=== PATIENT | male | born 1975 | race Caucasian/White ===

== ENCOUNTER 2018-11-21 03:19 | Inpatient (IN) ==
--- NOTE | 2018-11-21 04:01 | DR.EXTPAIN ---
HPI - Time seen Time seen: 03:50 - PCP Primary Care Physician: NFD - Complaint/Symptoms Chief Complaint Doctor Comments: Patient is complaining of pain and swelling left foot for the past five days getting progressively worst. States he was w orking in the yard and think he stepped on something because he pulled two pieces of metal from his left foot a few days ago and his foot has been swelling, turned red with greenish drainage recently. State the pain is 4 of 10 and hurts worst when he is walking. States he has been taking Septra at times at home some times one -two daily but not consistenly. He denies tobacco use but drinks 2-3 beers daily. He denies drug or vapor use. He denies chest pain or SOB. States he do not have a local doctor. Chief Complaint:: PT STATES' SOMETHING HIT ME IN MY FOOT 5 DAYS AGO I REMOVED SOME METAL PIECES OUT OF IT. I WORKED ON IT ALL DAY AND WHEN I TOOK A HOT SHOWER TONIGHT IT SWOLE UP LIKE THIS". PT HAS REDNESS AND SWELLING NOTED TO LT FOOT PT'S GF WAS SQUEEZING OUT GREENISH COLORED PUS AT HOME - Nurses notes reviewed Nurses Notes Review: Yes - Source History Provided: Patient - Mode of arrival Mode of Arrival: Ambulatory - Timing Onset of Chief Complaint: 11/16/18 - Context History of: None - Associated signs and symptoms Associated Signs and Symptoms: Pain, Foriegn Body, Swelling PMH - PMH Past Medical History: Yes Past Medical History: Arthritis Past Surgical History: No - Family History History of Family Medical Conditions: Yes Family Medical History: [place], Coronary Artery Disease - Social History Alcohol Use: DAILY Do 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 negative: See HPI, Chest Pain, Edema, Palpitations, Syncope, Cyanosis, Skin Mottling, Other Gastrointestinal/Abdominal: No Symptoms Reported. negative: See HPI, Abdominal Pain, Constipation, Diarrhea, Nausea, Vomiting, Food Intolerance, Other Genitourinary: No Symptoms Reported Neurological: No Symptoms Reported, Problems Walking (left foot pain and swelling) Musculoskeletal: Left, Foot (swelling, drainage) Integumentary: No Symptoms Reported, Wound (left heel with punture sites x2 with drainage) Hematologic/Lymphatic: No Symptoms Reported Endocrine: No Symptoms Reported Psychiatric: No Symptoms Reported. negative: See HPI, Anxiety, Depression, Hallucinations, Excessive crying, Suicidal, Other PE - General Limitations: No Limitations General Appearance: Alert, In Distress (moderate) - Head Head Exam: Normal Inspection, Atraumatic, Normocephalic - Eyes Eye exam: Normal Appearance, PERRL, EOMI. negative: Scleral Icterus, Co njunctival Injection, Nystagmus, Miosis, Mydrasis, Periorbital Swelling, Periorbital Tenderness, Other - ENT ENT Exam: Normal Exam, Normal Oropharynx, Normal External Ear Exam, Mucous Membranes Moist, TM's Normal Bilaterally - Neck Neck Exam: Normal Inspection, Full ROM, Trachea Midline - Chest Chest Inspection: Normal Inspection, Symmetric Chest Wall Rise. negative: Tenderness, Rash, Abscess, Other - Respiratory Respiratory Exam: Normal Lung Sounds Bilat Respiratory Exam: Bilateral Clear to Auscultation - Cardiovascular Cardiovascular Exam: Regular Rate, Normal Rhythm, Normal Heart Sounds. negative: Bradycardia, Tachycardia, Irregular Rhythm, Systolic Murmur, Diastolic Murmur, Rubs, Gallop, Clicks, JVD, +S1, +S2, +S3, +S4, Other - Abdominal Exam Abdominal Exam: Normal Inspection, Normal Bowel Sounds, Soft. negative: Distention, Tenderness, Guarding, Rebound, Rigidity, Dimnished Bowel Sounds, Hyperactive Bowel Sounds, Hypoactive Bowel Sounds, Organomegaly, Trauma, Incision, Ascites, Mass, Bruit, Pulsatile Mass, Hernia, Other Abdominal Tenderness: negative: RUQ, RLQ, LUQ, LLQ, Epigastrium, Suprapubic, Diffuse, Mild, Moderate, Severe, Other - Extremities Extremities Exam: Normal Inspection, Full ROM, Tenderness (left foot with pain,swelling, warm puru), Normal Capillary Refill, Edema (left foot with swelling; left lower leg with erythema) - Upper Extremities Shoulder Exam: Normal Inspection, Full ROM. negative: Tenderness, Swelling, Abrasion, Laceration, Ecchymosis, Deformity, Crepitus, Dislocation, Erythema, Tenderness over AC Joint, Other Arm Exam: Normal Inspection, Full ROM. negative: Tenderness, Swelling, Abrasion, Laceration, Ecchymosis, Deformity, Crepitus, Erythema, Other Elbow Exam: Normal Inspection, Full ROM. negative: Tenderness, Swelling, A brasion, Laceration, Ecchymosis, Deformity, Crepitus, Dislocation, Erythema, Effusion, Pain w/ pronation, Pain w/ Spuination, Tenderness over Radial Head, Other Forearm Exam: Normal Inspection, Full ROM. negative: Tenderness, Swelling, Abrasion, Laceration, Ecchymosis, Deformity, Crepitus, Erythema, Dislocation, Other Hand Exam: Normal Inspection, Full ROM Neuromotor Exam: Normal Exam Neurosensory Exam: Normal Exam Hand Tendon Exam: Flexor Digitorium Profundus (Location) (normal) Upper Ext. Vascular Exam: Capillary Refill (normal) - Lower Extremities Hip/Pelvis Exam: Normal Inspection, Full ROM. negative: Tenderness, Swelling, Abrasion, Laceration, Ecchymosis, Deformity, Crepitus, Dislocation, Erythema, External Rotation, Internal Rotation, Shortening, Pelvis Stable, Other Upper Leg Exam: Normal Inspection, Full ROM Knee Exam: Normal Inspection, Full ROM Lower Leg Exam: Normal Inspection, Full ROM, Tenderness (left foot with swelling, tender, erythema, edematous), Swelling, Erythema (left foot) Ankle Exam: Normal Inspection, Full ROM, Tenderness (left ankle with swelling and erythema), Erythema Foot/Toe Exam: Tenderness, Swelling, Erythema, Puncture Wound (left heel x2). negative: Normal Inspection (left foot with severe swelling, erythema, purulent drainabe) Neurovascular/Tendon Exam: Normal Capillary Refill Gait Exam: Not Tested/Not Observed - Back Back Exam: Normal Inspection, Full ROM. negative: Tenderness, (R) CVA Tenderness, (L) CVA Tenderness, Muscle Spasm, Paraspinal Tenderness, Vertebral Tenderness, Rashes, (R) Sciatic Notch Tenderness, (L) Sciatic Notch Tendern, (R) Straight Leg Raise, (L) Straight Leg Raise, Other - Neurological Neurological Exam: Alert, Oriented X3, CN II-XII Intact, Reflexes Normal. negative: Normal Gait (gait not tested) - Psychiatric Psychiatric Exam: Normal Affect, Normal Mood. negative: Depressed, Agitated, Anxious, Flat Affect, Manic, Homicidal Ideation, Suicidal Ideation, Other - Skin Skin Exam: Warm, Dry, Intact, Normal Color, Erythema (left foot) Type of Lesion: negative: Rash, Abscess, Laceration, Foreign Body, Bite/Sting, Abrasion, Other Distribution: negative: Generalized, Involves Palms/Soles, Head, Face, Neck, Thorax, Chest, Back, Abdomen, Genitals, LUE, LLE, RUE, RLE, Other Description: negative: Size, Tenderness, Erythematous, Swelling, Macular, Papular, Vesicular, Blisters, Cofluent, Bullous, Petechial, Purpuric, Urticarial, Crusting, Discharge, Fluctuant, Indurated, Other - Vital Signs Vitals: Temperature 98.1 F Pulse Rate 94 Respiratory Rate 20 Blood Pressure [Right Arm] 148/92 Blood Pressure [Left Arm] 142/88 Blood Pressure 136/65 O2 Sat by Pulse Oximetry 100 Course - Reevaluation 1st: Improved - Consultation Called: 06:10 (Dr. Bull paged x2.) Call Returned: 06:48 (Dr. Bull to admit) - Education/Counseling Education/Counseling: Patient, Family Educated On: Treatment, Diagnosis, Needs for Follow Up ROR - Labs Reviewed Laboratory Results Reviewed?: Yes (All Labs and x-ray results reviewed and discussed with patient) Result Diagrams: 11/21/18 04:30 11/21/18 04:30 - XRAY XRAY Interpreted by: Radiologist (left foot x-ray: No acute left foot fracture. Soft tissue swelling over the forefoot.) XRAY Findings: CXR: no acute cardiopulmonary changes noted. - Labs Reviewed Laboratory: WBC 12.1 X10^3/uL (3.6-10.0) H 11/21/18 04:30 RBC 4.04 X10^6/uL (4.7-6.0) L 11/21/18 04:30 Hgb 12.5 g/dL (13.5-18.0) L 11/21/18 04:30 Hct 35.7 % (42.0-54.0) L 11/21/18 04:30 MCV 88.5 fL (80.0-100.0) 11/21/18 04:30 MCH 30.9 pg (27.0-34.0) 11/21/18 04:30 MCHC 34.9 g/dL (33.0-35.0) 11/21/18 04:30 RDW 13.9 % (11.6-16.5) 11/21/18 04:30 Plt Count 243 X10^3/uL (150.0-450.0) 11/21/18 04:30 MPV 6.9 fL (7.4-11.0) L 11/21/18 04:30 Neut % (Auto) 80.8 % (42.0-75.0) H 11/21/18 04:30 Lymph % (Auto) 11.0 % (21.0-51.0) L 11/21/18 04:30 Arthur % (Auto) 7.3 % (0.0-13.0) 11/21/18 04:30 Eos % (Auto) 0.6 % (0.9-2.9) L 11/21/18 04:30 Baso % (Auto) 0.3 % (0.2-1.0) 11/21/18 04:30 Neut # (Auto) 9.8 x10^3/uL (2.2-4.8) H 11/21/18 04:30 Lymph # (Auto) 1.3 X10^3/uL (1.3-2.9) 11/21/18 04:30 Arthur # (Auto) 0.9 x10^3/uL (0.3-0.8) H 11/21/18 04:30 Eos # (Auto) 0.1 x10^3/uL (0.0-0.2) 11/21/18 04:30 Baso # (Auto) 0.0 X10^3/uL (0.0-0.1) 11/21/18 04:30 Absolute Nucleated RBC 0.0 /100WBC 11/21/18 04:30 Sodium 136 mmol/L (136-145) 11/21/18 04:30 Corrected Sodium TNP 11/21/18 04:30 Potassium 2.8 mmol/L (3.5-5.1) L* 11/21/18 04:30 Chloride 99 mmol/L (98-107) 11/21/18 04:30 Carbon Dioxide 26.1 mmol/L (21-32) 11/21/18 04:30 BUN 7 mg/dL (7-18) 11/21/18 04:30 Creatinine 0.86 mg/dL (0.70-1.30) 11/21/18 04:30 Est GFR (MDRD) Af Amer > 60 (>60) 11/21/18 04:30 Est GFR (MDRD) Non-Af > 60 (>60) 11/21/18 04:30 Glucose 107 mg/dL (65-99) H 11/21/18 04:30 Lactic Acid 0.7 mmol/L (0.4-2.0) 11/21/18 04:30 Calcium 8.8 mg/dL (8.5-10.1) 11/21/18 04:30 Corrected Calcium TNP 11/21/18 04:30 Total Bilirubin 0.40 mg/dL (0.2-1.0) 11/21/18 04:30 AST 15 Units/L (15-37) 11/21/18 04:30 ALT 25 Units/L (12-78) 11/21/18 04:30 Alkaline Phosphatase 84 Units/L (46-116) 11/21/18 04:30 Total Protein 7.5 g/dL (6.4-8.2) 11/21/18 04:30 Albumin 3.6 g/dL (3.4-5.0) 11/21/18 04:30 Globulin 3.9 g/dL (2.5-4.5) 11/21/18 04:30 Albumin/Globulin Ratio 0.9 Ratio (1.1-2.1) L 11/21/18 04:30 Opioid - Opioid Risk Tool Total: 0 Total Score Risk Category: Low Risk - Diagnosis Discharge Problem: Cellulitis of left foot, Hypokalemia Puncture wound of left foot Qualifiers: Encounter type: initial encounter Qualified Code(s): S91.332A - Puncture wound without foreign body, left foot, initial encounter - Discharge Plan Disposition: ADMITTED INPATIENT Condition: Stable - Follow ups/Referrals Follow ups/Referrals: NFD,None [Primary Care Provider] - 3 days - Instructions
[2018-11-21] MEDS ORDERED: VANCOMYCIN HCL 1 G in D5W 250 ML IV 250 ML IV ONE (04:03)
[2018-11-21] MEDS ORDERED: ADACEL or BOOSTRIX TDaP VACCINE IM ONE ×2 (04:04→04:17)
[2018-11-21] MEDS ORDERED: TORADOL 30 MG VIAL IVP ONE (04:05)
[2018-11-21] MEDS ORDERED: VANCOMYCIN HCL ONE (04:15)
[2018-11-21] MEDS ORDERED: TORADOL 30 MG VIAL ONE (04:15)
[2018-11-21] MEDS ORDERED: NS 250 ML IV 250 ML IV ONE (04:16)
[2018-11-21] MEDS: NS 1000 ML 1,000 ML IV SCH ×3 (04:24→21:37)
[2018-11-21 04:33] LABS: BASOPHILS % (AUTO) 0.3 % (0.2-1.0); EOSINOPHILS # (AUTO) 0.1 x10^3/uL (0.0-0.2); EOSINOPHILS % (AUTO) 0.6 % (0.9-2.9); HEMATOCRIT 35.7 % (42.0-54.0); HEMOGLOBIN 12.5 g/dL (13.5-18.0); LYMPHOCYTES # (AUTO) 1.3 X10^3/uL (1.3-2.9); MEAN CORPUSCULAR HEMOGLOBIN 30.9 pg (27.0-34.0); MEAN CORPUSCULAR HGB CONC 34.9 g/dL (33.0-35.0); MEAN CORPUSCULAR VOLUME 88.5 fL (80.0-100.0); MEAN PLATELET VOLUME 6.9 fL (7.4-11.0); MONOCYTES # (AUTO) 0.9 x10^3/uL (0.3-0.8); MONOCYTES % (AUTO) 7.3 % (0.0-13.0); NEUTROPHILS # (AUTO) 9.8 x10^3/uL (2.2-4.8); NEUTROPHILS % (AUTO) 80.8 % (42.0-75.0); PLATELET COUNT 243 X10^3/uL (150.0-450.0); RED BLOOD COUNT 4.04 X10^6/uL (4.7-6.0); RED CELL DISTRIBUTION WIDTH 13.9 % (11.6-16.5); WHITE BLOOD COUNT 12.1 X10^3/uL (3.6-10.0)
[2018-11-21 04:47] LABS: BLOOD UREA NITROGEN 7 mg/dL (7-18); CALCIUM 8.8 mg/dL (8.5-10.1); CARBON DIOXIDE 26.1 mmol/L (21-32); CHLORIDE 99 mmol/L (98-107); CREATININE 0.86 mg/dL (0.70-1.30); SODIUM 136 mmol/L (136-145); eGFR NON BLACK RACES > 60 (>60)
[2018-11-21 04:51] LABS: ALANINE AMINOTRANSFERASE 25 Units/L (12-78); ALBUMIN 3.6 g/dL (3.4-5.0); ALKALINE PHOSPHATASE 84 Units/L (46-116); ASPARTATE AMINO TRANSFERASE 15 Units/L (15-37); TOTAL PROTEIN 7.5 g/dL (6.4-8.2)
[2018-11-21 04:56] LABS: LACTIC ACID 0.7 mmol/L (0.4-2.0)
[2018-11-21] MEDS ORDERED: K-LYTE EFFERVESCENT PO ONE (05:08)
[2018-11-21] MEDS ORDERED: K-LYTE EFFERVESCENT ONE (05:12)
--- NOTE | 2018-11-21 05:55 | RAD ---
Left foot three views Indication: Cellulitis. Foreign body Findings: There is no cortical lucency or malalignment. There is soft tissue swelling over the forefoot. Impression: No acute left foot fracture. Soft tissue swelling over the forefoot noted. Reported By:
--- NOTE | 2018-11-21 05:56 | RAD ---
Chest AP portable Indication: Cellulitis Comparison: 03/11/2014 Findings: There is no pneumothorax or effusion. There is no consolidation. Heart size is normal. Impression: No acute chest process. Reported By:
[2018-11-21] MEDS ORDERED: ZOSYN VIAL 3.375 GRAMS 3.375 G in NS 100 ML IV + SPIKE MINIBAG* 100 ML IV ONE (06:22)
[2018-11-21] MEDS ORDERED: NS 100 ML IV 100 ML IV ONE (06:51)
[2018-11-21] MEDS ORDERED: ZOFRAN TAB 4 MG PO PRN (06:51)
[2018-11-21] MEDS ORDERED: ZOSYN VIAL 3.375 GRAMS IV ONE (06:52)
[2018-11-21 07:49] LABS: BILIRUBIN,URINE NEGATIVE (NEGATIVE); BLOOD/HEMOGLOBIN,URINE 1+ (NEGATIVE); GLUCOSE, URINE NEGATIVE (NEGATIVE); KETONES,URINE 1+ (NEGATIVE); LEUKOCYTE ESTERASE ,URINE 1+ (NEGATIVE); NITRITES,URINE NEGATIVE (NEGATIVE); PROTEIN,URINE 2+ (NEGATIVE); UROBILINOGEN,URINE 3+ (NORMAL)
[2018-11-21 07:57] LABS: APPEARANCE,URINE CLEAR (CLEAR); COLOR,URINE DARK YELLOW (YELLOW); RBC,URINE NONE SEEN /HPF (0-3)
[2018-11-21 07:58] LABS: AMORPHOUS SEDIMENT,UR TRACE /HPF (NEGATIVE); BACTERIA,URINE NEGATIVE /HPF (NEGATIVE); MUCUS,URINE MANY /HPF (NEGATIVE); SQUAMOUS EPITHELIAL CELL,UR NEGATIVE /HPF (NEGATIVE)
[2018-11-21] MEDS ORDERED: NS 1/2 + KCL 20 MEQ/L 1,000 ML IV SCH (08:00)
[2018-11-21] MEDS: LEVAQUIN PREMIX IV 750 MG 750 MG/150 ML BAG IV SCH (10:02)
[2018-11-21] MEDS: LOVENOX INJ 40 MG SYR SC SCH (10:03)
[2018-11-21] MEDS: MOTRIN TAB 600 MG PO PRN (10:03)
[2018-11-21 10:11] VITALS: BMI 22.4
--- NOTE | 2018-11-21 11:04 | DR.H&P ---
H&P - History & Physical for Day of: H&P Date: 11/21/18 - Chief Complaint Chief Complaint: left ankle pain, redness - History of Present Illness History of Present Illness: PT IS 43 WM ER ADMISSION AFTER PRESENTING WITH CO REDNESS, SWELLING PAIN TO LEFT LATERAL ANKLE AND POSTERIOR LLE. PT STATES HAD METAL IN LEG ABOUT 1-2 WEEKS AGO, GOT INFECTED AND DRAINED THICK YELLOW D/C. PT STATES HE TOOK SEPTRA AT HOME ~ 4 DOSES. PT DENIES ANY HX OF DM OR HTN. PT ADMITTED FOR TREATMENT OF LLE CELLULITIS. - Past Medical History Past Medical History: Arthritis - Past Surgical History Surgical History: Ortho Surgery (LEFT HAND) - Family History Family Medical History: Cancer, [place], Hypertension - Social History Does patient currently use any type of tobacco product: No Have you used tobacco products in the last 12 months: No Type of Tobacco Use: None Does any household member use tobacco: No Alcohol Use: Occasionally Drug Use: None - Medications Home Medications: No Known Drug Allergies Allergy (Verified 11/21/18 03:26) CONTINUE taking the following medications NK 11/21/18 [History] - Review of Systems Constitutional: Fever Eyes: No Symptoms Reported ENT: No Symptoms Reported Respiratory: No Symptoms Reported Cardiovascular: No Symptoms Reported Gastrointestinal: No Symptoms Reported Genitourinary: No Symptoms Reported Musculoskeletal: Leg Pain Skin: Wound (LLE, LEFT ANKLE) - Physical Exam Vital Signs: Temperature 98.1 F Pulse Rate [Left Brachial] 86 Pulse Rate 94 Respiratory Rate 18 Blood Pressure [Right Arm] 137/80 Blood Pressure [Left Arm] 110/64 Blood Pressure 136/65 O2 Sat by Pulse Oximetry 100 Oriented: Normal Eyes: Normal Ear: Normal Nose: Normal Throat: Normal Respiratory: Clear Throughout Cardiovascular: Normal : Normal Auscultation: Bowel Sounds: Normal Palpation: Normal Tenderness: Normal Skin: Red, Tender, Hot, Wound Musculoskeletal: Left, Ankle, Foot Psychiatric: Normal Speech Pattern: Clear, Appropriate - Assessment/Plan (1) Hypokalemia Status: Acute Plan: ADMIT, IV HYDRATION, POTASSIUM REPLACEMENT. WOUND CARE, WOUND AND BLOOD CULTURES ON ADMISSION. IV ATBX THERAPY, LLE XRAY IN ER. CXR IN ER ON ADMISSION. (2) Cellulitis of left foot Status: Acute (3) Puncture wound of left foot Qualifiers: Encounter type: initial encounter Qualified Code(s): S91.332A - Puncture wound without foreign body, left foot, initial encounter Status: Acute - Allergies Allergies/Adverse Reactions: Allergies Allergy/AdvReac Type Severity Reaction Status Date / Time No Known Drug Allergies Allergy Verified 11/21/18 03:26
[2018-11-21] MEDS ORDERED: POTASSIUM CHL 60 MEQ/NS 0.45% 500 ML IV PRN (11:21)
[2018-11-21] MEDS ORDERED: POTASSIUM CHL 40 MEQ/NS 0.45% 500 ML IV PRN (11:21)
[2018-11-21] MEDS ORDERED: K-RIDER 10 MEQ/NS 100 ML 10 MEQ/100 ML BAG IV PRN (11:21)
[2018-11-21] MEDS ORDERED: POTASSIUM CHLORIDE LIQ 20 MEQ UDC PO PRN (11:21)
[2018-11-21] MEDS ORDERED: MICRO K EXTEN CAP 10 MEQ PO PRN (11:21)
[2018-11-21] MEDS ORDERED: KLOR-CON PO PRN (11:21)
[2018-11-21] MEDS: NORCO 5/325 MG TAB PO PRN ×2 (11:32→19:20)
[2018-11-21] MEDS: K-DUR TAB 20 MEQ PO PRN (14:52)
[2018-11-21] MEDS: ZOSYN VIAL 3.375 GRAMS 3.375 G in NS 100 ML IV + SPIKE MINIBAG* 100 ML IV SCH ×2 (14:52→21:38)
[2018-11-21] MEDS: MORPHINE SULFATE INJ 2 MG INJ IVP PRN (14:53)
[2018-11-22] MEDS: ZOSYN VIAL 3.375 GRAMS 3.375 G in NS 100 ML IV + SPIKE MINIBAG* 100 ML IV SCH ×4 (05:26→21:36)
[2018-11-22] MEDS: NORCO 5/325 MG TAB PO PRN ×2 (05:36→12:27)
[2018-11-22 05:39] LABS: BASOPHILS % (AUTO) 0.8 % (0.2-1.0); EOSINOPHILS # (AUTO) 0.2 x10^3/uL (0.0-0.2); EOSINOPHILS % (AUTO) 2.8 % (0.9-2.9); HEMATOCRIT 34.4 % (42.0-54.0); HEMOGLOBIN 12.1 g/dL (13.5-18.0); LYMPHOCYTES # (AUTO) 1.7 X10^3/uL (1.3-2.9); LYMPHOCYTES % (AUTO) 28.9 % (21.0-51.0); MEAN CORPUSCULAR HEMOGLOBIN 31.3 pg (27.0-34.0); MEAN CORPUSCULAR HGB CONC 35.2 g/dL (33.0-35.0); MEAN CORPUSCULAR VOLUME 88.8 fL (80.0-100.0); MONOCYTES # (AUTO) 0.5 x10^3/uL (0.3-0.8); MONOCYTES % (AUTO) 7.9 % (0.0-13.0); NEUTROPHILS # (AUTO) 3.6 x10^3/uL (2.2-4.8); NEUTROPHILS % (AUTO) 59.6 % (42.0-75.0); PLATELET COUNT 217 X10^3/uL (150.0-450.0); RED BLOOD COUNT 3.87 X10^6/uL (4.7-6.0); RED CELL DISTRIBUTION WIDTH 14.1 % (11.6-16.5)
[2018-11-22 06:00] LABS: ALANINE AMINOTRANSFERASE 21 Units/L (12-78); ALBUMIN 2.9 g/dL (3.4-5.0); ALKALINE PHOSPHATASE 68 Units/L (46-116); ASPARTATE AMINO TRANSFERASE 12 Units/L (15-37); BLOOD UREA NITROGEN 8 mg/dL (7-18); CALCIUM 8.6 mg/dL (8.5-10.1); CARBON DIOXIDE 29.2 mmol/L (21-32); CHLORIDE 104 mmol/L (98-107); COR CA(FOR HYPOALB) 9.5 mg/dL (8.5-10.1); CREATININE 0.73 mg/dL (0.70-1.30); SODIUM 140 mmol/L (136-145); TOTAL PROTEIN 6.4 g/dL (6.4-8.2); eGFR NON BLACK RACES > 60 (>60)
[2018-11-22] MEDS: K-DUR TAB 20 MEQ PO PRN (06:45)
[2018-11-22] MEDS: LEVAQUIN PREMIX IV 750 MG 750 MG/150 ML BAG IV SCH (08:24)
[2018-11-22] MEDS: LOVENOX INJ 40 MG SYR SC SCH (08:24)
[2018-11-22] MEDS: MORPHINE SULFATE INJ 2 MG INJ IVP PRN (13:33)
[2018-11-22] MEDS: NS 1000 ML 1,000 ML IV SCH ×2 (13:51→19:10)
[2018-11-22] MEDS: MOTRIN TAB 600 MG PO PRN (16:00)
--- NOTE | 2018-11-22 16:50 | PCM.PROG ---
Progress Note - Progress Note for Day of Date of Exam: 11/22/18 - Subjective Subjective: 43 WM ER ADMISSION WITH LEFT LEG/MAGALY CELLULITIS WITH SMALL OPEN SORE TO POSTERIOR ANKLE AREA. CULTURE WAS OBTAINED AFTER ADMISSION. PT IS CURRENTLY ON IV LEVAQUIN AND ZOSYN. PT WBC NORMAL THIS AM. PT CONTINUES WITH LOCALIZED REDNESS AND TENDERNESS ON EXAM. - Past Medical Family Social History Past Med/Fam/Surg Hx: No changes since H&P Allergies: Allergies No Known Drug Allergies Allergy (Verified 11/21/18 03:26) - Review of Systems ROS: No change since H&P - Vital Signs and I&O's Vital Signs: Temperature 98.5 F Pulse Rate [Left Brachial] 70 Pulse Rate 94 Respiratory Rate 18 Blood Pressure [Right Arm] 131/69 Blood Pressure [Left Arm] 137/74 Blood Pressure 136/65 O2 Sat by Pulse Oximetry 100 Intake and Output: Intake & Output 11/20/18 11/21/18 11/22/18 11/23/18 11:59 11:59 11:59 11:59 Intake Total 3290 / 3290 1620 / 1620 Balance 3290 / 3290 1620 / 1620 - Physical Exam Oriented: Normal Eyes: Normal Ear: Normal Nose: Normal Throat: Normal Respiratory: Normal Cardiovascular: Normal : Normal Auscultation: Bowel Sounds: Normal Tenderness: Normal Skin: Red, Tender, Hot, Wound Musculoskeletal: Left, Ankle, Foot Psychiatric: Normal Speech Pattern: Clear, Appropriate - Laboratory and Diagnostics Result Diagrams: 11/22/18 05:02 11/22/18 05:02 Labs: 11/21/18 15:35 Foot - Left Gram Stain - Final 11/21/18 15:35 Foot - Left Wound Culture - Preliminary Laboratory WBC 6.0 X10^3/uL (3.6-10.0) 11/22/18 05:02 RBC 3.87 X10^6/uL (4.7-6.0) L 11/22/18 05:02 Hgb 12.1 g/dL (13.5-18.0) L 11/22/18 05:02 Hct 34.4 % (42.0-54.0) L 11/22/18 05:02 MCV 88.8 fL (80.0-100.0) 11/22/18 05:02 MCH 31.3 pg (27.0-34.0) 11/22/18 05:02 MCHC 35.2 g/dL (33.0-35.0) H 11/22/18 05:02 RDW 14.1 % (11.6-16.5) 11/22/18 05:02 Plt Count 217 X10^3/uL (150.0-450.0) 11/22/18 05:02 MPV 7.0 fL (7.4-11.0) L 11/22/18 05:02 Neut % (Auto) 59.6 % (42.0-75.0) 11/22/18 05:02 Lymph % (Auto) 28.9 % (21.0-51.0) 11/22/18 05:02 Morgan % (Auto) 7.9 % (0.0-13.0) 11/22/18 05:02 Eos % (Auto) 2.8 % (0.9-2.9) 11/22/18 05:02 Baso % (Auto) 0.8 % (0.2-1.0) 11/22/18 05:02 Neut # (Auto) 3.6 x10^3/uL (2.2-4.8) 11/22/18 05:02 Lymph # (Auto) 1.7 X10^3/uL (1.3-2.9) 11/22/18 05:02 Morgan # (Auto) 0.5 x10^3/uL (0.3-0.8) 11/22/18 05:02 Eos # (Auto) 0.2 x10^3/uL (0.0-0.2) 11/22/18 05:02 Baso # (Auto) 0.0 X10^3/uL (0.0-0.1) 11/22/18 05:02 Absolute Nucleated RBC 0.0 /100WBC 11/22/18 05:02 Sodium 140 mmol/L (136-145) 11/22/18 05:02 Corrected Sodium TNP 11/22/18 05:02 Potassium 3.4 mmol/L (3.5-5.1) L 11/22/18 05:02 Chloride 104 mmol/L (98-107) 11/22/18 05:02 Carbon Dioxide 29.2 mmol/L (21-32) 11/22/18 05:02 BUN 8 mg/dL (7-18) 11/22/18 05:02 Creatinine 0.73 mg/dL (0.70-1.30) 11/22/18 05:02 Est GFR (MDRD) Af Amer > 60 (>60) 11/22/18 05:02 Est GFR (MDRD) Non-Af > 60 (>60) 11/22/18 05:02 Glucose 90 mg/dL (65-99) 11/22/18 05:02 Lactic Acid 0.7 mmol/L (0.4-2.0) 11/21/18 04:30 Calcium 8.6 mg/dL (8.5-10.1) 11/22/18 05:02 Corrected Calcium 9.5 mg/dL (8.5-10.1) 11/22/18 05:02 Magnesium 2.1 mg/dL (1.7-2.9) 11/21/18 07:40 Total Bilirubin 0.30 mg/dL (0.2-1.0) 11/22/18 05:02 AST 12 Units/L (15-37) L 11/22/18 05:02 ALT 21 Units/L (12-78) 11/22/18 05:02 Alkaline Phosphatase 68 Units/L (46-116) 11/22/18 05:02 Total Protein 6.4 g/dL (6.4-8.2) 11/22/18 05:02 Albumin 2.9 g/dL (3.4-5.0) L 11/22/18 05:02 Globulin 3.5 g/dL (2.5-4.5) 11/22/18 05:02 Albumin/Globulin Ratio 0.8 Ratio (1.1-2.1) L 11/22/18 05:02 Specimen Type Clean catch urine 11/21/18 07:30 Urine Color Dark yellow (YELLOW) 11/21/18 07:30 Urine Appearance Clear (CLEAR) 11/21/18 07:30 Urine pH 6.0 (5.0 - 8.0) 11/21/18 07:30 Ur Specific [place] 1.020 (1.000-1.030) 11/21/18 07:30 Urine Protein 2+ (NEGATIVE) 11/21/18 07:30 Urine Glucose (UA) Negative (NEGATIVE) 11/21/18 07:30 Urine Ketones 1+ (NEGATIVE) 11/21/18 07:30 Urine Occult Blood 1+ (NEGATIVE) 11/21/18 07:30 Urine Nitrite Negative (NEGATIVE) 11/21/18 07:30 Urine Bilirubin Negative (NEGATIVE) 11/21/18 07:30 Urine Urobilinogen 3+ (NORMAL) 11/21/18 07:30 Ur Leukocyte Esterase 1+ (NEGATIVE) 11/21/18 07:30 Urine RBC None seen /HPF (0-3) 11/21/18 07:30 Urine WBC 3-5 /HPF (0-5) 11/21/18 07:30 Ur Squamous Epith Cells Negative /HPF (NEGATIVE) 11/21/18 07:30 Amorphous Sediment Trace /HPF (NEGATIVE) 11/21/18 07:30 Urine Bacteria Negative /HPF (NEGATIVE) 11/21/18 07:30 Urine Mucus Many /HPF (NEGATIVE) 11/21/18 07:30 Ur Culture Indicated? No/not indicated 11/21/18 07:30 Urine Opiates Screen Negative (NEG=<300) 11/21/18 07:30 Urine Methadone Screen Negative (NEG=<300) 11/21/18 07:30 Ur Barbiturates Screen Negative (NEG=<200) 11/21/18 07:30 Ur Phencyclidine Scrn Negative (NEG=<25) 11/21/18 07:30 Ur Amphetamines Screen Positive (NEG=<1000) 11/21/18 07:30 U Benzodiazepines Scrn Negative (NEG=<200) 11/21/18 07:30 Urine Cocaine Screen Negative (NEG=<300) 11/21/18 07:30 U Marijuana (THC) Screen Negative (NEG=<50) 11/21/18 07:30 - Plan (1) Hypokalemia Status: Acute Plan: IV HYDRATION, POTASSIUM REPLACEMENT. WOUND CARE, WOUND AND BLOOD CULTURES ON ADMISSION. IV ATBX THERAPY, LLE XRAY IN ER. CXR IN ER ON ADMISSION. (2) Cellulitis of left foot Status: Acute (3) Puncture wound of left foot Status: Acute Qualifiers: Encounter type: initial encounter Qualified Code(s): S91.332A - Puncture wound without foreign body, left foot, initial encounter
[2018-11-23] MEDS: NS 1000 ML 1,000 ML IV SCH ×3 (00:33→15:23)
[2018-11-23] MEDS: ZOSYN VIAL 3.375 GRAMS 3.375 G in NS 100 ML IV + SPIKE MINIBAG* 100 ML IV SCH (05:54)
[2018-11-23 06:41] LABS: BASOPHILS # (AUTO) 0.1 X10^3/uL (0.0-0.1); BASOPHILS % (AUTO) 1.2 % (0.2-1.0); EOSINOPHILS # (AUTO) 0.2 x10^3/uL (0.0-0.2); EOSINOPHILS % (AUTO) 2.9 % (0.9-2.9); HEMATOCRIT 36.4 % (42.0-54.0); HEMOGLOBIN 12.9 g/dL (13.5-18.0); LYMPHOCYTES # (AUTO) 1.8 X10^3/uL (1.3-2.9); LYMPHOCYTES % (AUTO) 31.8 % (21.0-51.0); MEAN CORPUSCULAR HEMOGLOBIN 31.4 pg (27.0-34.0); MEAN CORPUSCULAR HGB CONC 35.4 g/dL (33.0-35.0); MEAN CORPUSCULAR VOLUME 88.8 fL (80.0-100.0); MEAN PLATELET VOLUME 6.8 fL (7.4-11.0); MONOCYTES # (AUTO) 0.4 x10^3/uL (0.3-0.8); MONOCYTES % (AUTO) 6.8 % (0.0-13.0); NEUTROPHILS # (AUTO) 3.3 x10^3/uL (2.2-4.8); NEUTROPHILS % (AUTO) 57.3 % (42.0-75.0); PLATELET COUNT 222 X10^3/uL (150.0-450.0); RED CELL DISTRIBUTION WIDTH 13.9 % (11.6-16.5); WHITE BLOOD COUNT 5.7 X10^3/uL (3.6-10.0)
[2018-11-23 07:02] LABS: ALANINE AMINOTRANSFERASE 19 Units/L (12-78); ALBUMIN 3.2 g/dL (3.4-5.0); ALKALINE PHOSPHATASE 69 Units/L (46-116); ASPARTATE AMINO TRANSFERASE 14 Units/L (15-37); BLOOD UREA NITROGEN 7 mg/dL (7-18); CARBON DIOXIDE 26.8 mmol/L (21-32); CHLORIDE 105 mmol/L (98-107); COR CA(FOR HYPOALB) 9.6 mg/dL (8.5-10.1); CREATININE 0.65 mg/dL (0.70-1.30); SODIUM 141 mmol/L (136-145); TOTAL PROTEIN 7.1 g/dL (6.4-8.2); eGFR NON BLACK RACES > 60 (>60)
[2018-11-23] MEDS: NORCO 5/325 MG TAB PO PRN ×4 (08:50→21:57)
[2018-11-23] MEDS: MORPHINE SULFATE INJ 2 MG INJ IVP PRN (10:50)
[2018-11-23] MEDS: LOVENOX INJ 40 MG SYR SC SCH (10:53)
[2018-11-23] MEDS: BACTRIM DS TAB PO SCH ×2 (11:50→21:01)
[2018-11-23] MEDS: VANCOMYCIN HCL 1 G in D5W 250 ML IV 250 ML IV SCH ×2 (11:50→21:02)
[2018-11-23] MEDS: COLACE CAP 100 MG PO SCH (21:00)
[2018-11-24] MEDS: NS 1000 ML 1,000 ML IV SCH ×2 (05:15→17:18)
[2018-11-24 06:17] LABS: BASOPHILS # (AUTO) 0.1 X10^3/uL (0.0-0.1); BASOPHILS % (AUTO) 1.5 % (0.2-1.0); EOSINOPHILS # (AUTO) 0.2 x10^3/uL (0.0-0.2); EOSINOPHILS % (AUTO) 3.1 % (0.9-2.9); HEMATOCRIT 36.5 % (42.0-54.0); HEMOGLOBIN 12.8 g/dL (13.5-18.0); LYMPHOCYTES # (AUTO) 1.8 X10^3/uL (1.3-2.9); LYMPHOCYTES % (AUTO) 30.4 % (21.0-51.0); MEAN CORPUSCULAR HEMOGLOBIN 31.3 pg (27.0-34.0); MEAN CORPUSCULAR HGB CONC 35.1 g/dL (33.0-35.0); MEAN CORPUSCULAR VOLUME 89.2 fL (80.0-100.0); MEAN PLATELET VOLUME 7.1 fL (7.4-11.0); MONOCYTES # (AUTO) 0.5 x10^3/uL (0.3-0.8); MONOCYTES % (AUTO) 7.9 % (0.0-13.0); NEUTROPHILS # (AUTO) 3.4 x10^3/uL (2.2-4.8); NEUTROPHILS % (AUTO) 57.1 % (42.0-75.0); PLATELET COUNT 207 X10^3/uL (150.0-450.0); RED BLOOD COUNT 4.09 X10^6/uL (4.7-6.0); RED CELL DISTRIBUTION WIDTH 14.1 % (11.6-16.5); WHITE BLOOD COUNT 5.9 X10^3/uL (3.6-10.0)
[2018-11-24 06:56] LABS: ALANINE AMINOTRANSFERASE 30 Units/L (12-78); ALBUMIN 2.9 g/dL (3.4-5.0); ALKALINE PHOSPHATASE 62 Units/L (46-116); ASPARTATE AMINO TRANSFERASE 30 Units/L (15-37); BLOOD UREA NITROGEN 7 mg/dL (7-18); CALCIUM 8.5 mg/dL (8.5-10.1); CARBON DIOXIDE 25.6 mmol/L (21-32); CHLORIDE 107 mmol/L (98-107); COR CA(FOR HYPOALB) 9.4 mg/dL (8.5-10.1); CREATININE 0.63 mg/dL (0.70-1.30); SODIUM 142 mmol/L (136-145); TOTAL PROTEIN 6.3 g/dL (6.4-8.2); eGFR NON BLACK RACES > 60 (>60)
[2018-11-24] MEDS: NORCO 5/325 MG TAB PO PRN ×3 (07:35→20:55)
[2018-11-24] MEDS: BACTRIM DS TAB PO SCH ×2 (08:42→20:55)
[2018-11-24] MEDS: VANCOMYCIN HCL 1 G in D5W 250 ML IV 250 ML IV SCH ×2 (08:43→21:50)
[2018-11-24] MEDS: MORPHINE SULFATE INJ 2 MG INJ IVP PRN (08:50)
[2018-11-24] MEDS: LOVENOX INJ 40 MG SYR SC SCH (09:03)
[2018-11-24] MEDS ORDERED: XYLOCAINE 1 % (PLAIN) ONE (11:19)
[2018-11-24] MEDS ORDERED: NS 1000 ML 1,000 ML ONE (11:41)
[2018-11-24] MEDS ORDERED: FENTANYL INJ 100 mcg ONE (12:05)
--- NOTE | 2018-11-24 13:00 | OR.IMMED ---
Immediate Post-Op Note - Immediate Post-Op Note Pre-Op Diagnosis: Lt foot abscess. Post-Op Diagnosis: Lt foot abscess above the heel with cellulitis. Procedure: I & D Lt foot abscess. Surgeon/Mobile Application Tester: Nick. Estimated Blood Loss: 10cc Condition: Stable (packed with iodoform and dressd ..)
--- NOTE | 2018-11-24 15:50 | MRI ---
MRI left ankle with and without contrast Indication: Cellulitis of left ankle, spider bite Technique: Multisequence, multiplanar MR images of the left ankle were obtained with and without IV contrast. Comparison: None Findings: There is circumferential soft tissue edema and mild skin thickening about the ankle, compatible with provided history of cellulitis. There is an approximately 1.8 x 1.0 x 0.9 cm peripherally enhancing collection just lateral to the distal Achilles tendon on post-contrast sagittal image 14 and coronal image 32, compatible with abscess. No additional drainable fluid collections seen. Visualized marrow signal and bony alignment are normal. No acute fracture, subluxation, stress reaction or abnormal marrow signal to suggest osteomyelitis is identified. No discrete talar dome osteochondral defects seen. No high-grade chondrosis or significant joint effusions are observed. The syndesmotic ligaments, lateral ligaments of the ankle and deltoid ligaments are grossly intact. There is small peritendinous fluid about the otherwise intact posterior tibialis tendon, compatible with tenosynovitis. The peroneal, remaining medial flexor and visualized anterior compartment tendons of the ankle are normal. The Achilles tendon is also normal in signal and morphology. The plantar fascia is normal as well. Impression: Findings compatible with cellulitis about the ankle with small (1.8 cm) abscess adjacent to the lateral distal Achilles tendon as above. Posterior tibialis tenosynovitis. Reported By:
--- NOTE | 2018-11-24 16:14 | PCM.PROG ---
Progress Note - Progress Note for Day of Date of Exam: 11/24/18 - Subjective Subjective: 43 WM ER ADMISSION WITH LEFT LEG/MAGALY CELLULITIS WITH SMALL OPEN SORE TO POSTERIOR ANKLE AREA, WITH SWELLING TO ACHILLES TENDON AREA. CULTURE + MRSA. PT IS CURRENTLY ON PO BACTRIM DS AND VANCOMYCIN. PT CONTINUES WITH CO PURULENT DC THIS AM, AFTER LARGE AMOUNT OF D/C EXPRESSED FROM WOUND ON 11/23. PT HAD PAIN WITH AMBULATION, UNABLE TO PUT WEIGHT ON HEEL. DR FUENTES CONSULTED FOR I &D, MRI LEFT ANKLE ORDERED. - Past Medical Family Social History Past Med/Fam/Surg Hx: No changes since H&P Allergies: Allergies No Known Drug Allergies Allergy (Verified 11/21/18 03:26) - Review of Systems ROS: No change since H&P - Vital Signs and I&O's Vital Signs: Temperature 98.0 F Pulse Rate [Right Brachial] 70 Pulse Rate [Left Brachial] 79 Pulse Rate 94 Respiratory Rate 18 Blood Pressure [Right Arm] 120/86 Blood Pressure [Left Arm] 128/72 Blood Pressure 136/65 O2 Sat by Pulse Oximetry 98 Intake and Output: Intake & Output 11/22/18 11/23/18 11/24/18 11/25/18 11:59 11:59 11:59 11:59 Intake Total 3290 / 3290 2845 / 2845 2520 / 2520 1660 / 1660 Output Total 600 / 600 1000 / 1000 Balance 3290 / 3290 2245 / 2245 2520 / 2520 660 / 660 - Physical Exam Oriented: Normal Eyes: Normal Ear: Normal Nose: Normal Throat: Normal Respiratory: Normal Cardiovascular: Normal : Normal Auscultation: Bowel Sounds: Normal Tenderness: Normal Skin: Red, Tender, Hot, Wound Musculoskeletal: Left, Ankle, Foot Psychiatric: Normal Speech Pattern: Clear, Appropriate - Laboratory and Diagnostics Result Diagrams: 11/24/18 05:49 11/24/18 05:49 Labs: 11/24/18 13:31 Foot - Left Gram Stain - Final 11/21/18 04:30 Blood Blood Culture - Preliminary 11/21/18 05:11 Blood Blood Culture - Preliminary 11/21/18 15:35 Foot - Left Gram Stain - Final 11/21/18 15:35 Foot - Left Wound Culture - Final Methicillin Resis Staph Aureus Laboratory WBC 5.9 X10^3/uL (3.6-10.0) 11/24/18 05:49 RBC 4.09 X10^6/uL (4.7-6.0) L 11/24/18 05:49 Hgb 12.8 g/dL (13.5-18.0) L 11/24/18 05:49 Hct 36.5 % (42.0-54.0) L 11/24/18 05:49 MCV 89.2 fL (80.0-100.0) 11/24/18 05:49 MCH 31.3 pg (27.0-34.0) 11/24/18 05:49 MCHC 35.1 g/dL (33.0-35.0) H 11/24/18 05:49 RDW 14.1 % (11.6-16.5) 11/24/18 05:49 Plt Count 207 X10^3/uL (150.0-450.0) 11/24/18 05:49 MPV 7.1 fL (7.4-11.0) L 11/24/18 05:49 Neut % (Auto) 57.1 % (42.0-75.0) 11/24/18 05:49 Lymph % (Auto) 30.4 % (21.0-51.0) 11/24/18 05:49 [place] % (Auto) 7.9 % (0.0-13.0) 11/24/18 05:49 Eos % (Auto) 3.1 % (0.9-2.9) H 11/24/18 05:49 Baso % (Auto) 1.5 % (0.2-1.0) H 11/24/18 05:49 Neut # (Auto) 3.4 x10^3/uL (2.2-4.8) 11/24/18 05:49 Lymph # (Auto) 1.8 X10^3/uL (1.3-2.9) 11/24/18 05:49 [place] # (Auto) 0.5 x10^3/uL (0.3-0.8) 11/24/18 05:49 Eos # (Auto) 0.2 x10^3/uL (0.0-0.2) 11/24/18 05:49 Baso # (Auto) 0.1 X10^3/uL (0.0-0.1) 11/24/18 05:49 Absolute Nucleated RBC 0.0 /100WBC 11/24/18 05:49 Sodium 142 mmol/L (136-145) 11/24/18 05:49 Corrected Sodium TNP 11/24/18 05:49 Potassium 4.1 mmol/L (3.5-5.1) 11/24/18 05:49 Chloride 107 mmol/L (98-107) 11/24/18 05:49 Carbon Dioxide 25.6 mmol/L (21-32) 11/24/18 05:49 BUN 7 mg/dL (7-18) 11/24/18 05:49 Creatinine 0.63 mg/dL (0.70-1.30) L 11/24/18 05:49 Est GFR (MDRD) Af Amer > 60 (>60) 11/24/18 05:49 Est GFR (MDRD) Non-Af > 60 (>60) 11/24/18 05:49 Glucose 79 mg/dL (65-99) 11/24/18 05:49 Lactic Acid 0.7 mmol/L (0.4-2.0) 11/21/18 04:30 Calcium 8.5 mg/dL (8.5-10.1) 11/24/18 05:49 Corrected Calcium 9.4 mg/dL (8.5-10.1) 11/24/18 05:49 Magnesium 2.1 mg/dL (1.7-2.9) 11/21/18 07:40 Total Bilirubin 0.10 mg/dL (0.2-1.0) L 11/24/18 05:49 AST 30 Units/L (15-37) 11/24/18 05:49 ALT 30 Units/L (12-78) 11/24/18 05:49 Alkaline Phosphatase 62 Units/L (46-116) 11/24/18 05:49 Total Protein 6.3 g/dL (6.4-8.2) L 11/24/18 05:49 Albumin 2.9 g/dL (3.4-5.0) L 11/24/18 05:49 Globulin 3.4 g/dL (2.5-4.5) 11/24/18 05:49 Albumin/Globulin Ratio 0.9 Ratio (1.1-2.1) L 11/24/18 05:49 Specimen Type Clean catch urine 11/21/18 07:30 Urine Color Dark yellow (YELLOW) 11/21/18 07:30 Urine Appearance Clear (CLEAR) 11/21/18 07:30 Urine pH 6.0 (5.0 - 8.0) 11/21/18 07:30 Ur Specific [place] 1.020 (1.000-1.030) 11/21/18 07:30 Urine Protein 2+ (NEGATIVE) 11/21/18 07:30 Urine Glucose (UA) Negative (NEGATIVE) 11/21/18 07:30 Urine Ketones 1+ (NEGATIVE) 11/21/18 07:30 Urine Occult Blood 1+ (NEGATIVE) 11/21/18 07:30 Urine Nitrite Negative (NEGATIVE) 11/21/18 07:30 Urine Bilirubin Negative (NEGATIVE) 11/21/18 07:30 Urine Urobilinogen 3+ (NORMAL) 11/21/18 07:30 Ur Leukocyte Esterase 1+ (NEGATIVE) 11/21/18 07:30 Urine RBC None seen /HPF (0-3) 11/21/18 07:30 Urine WBC 3-5 /HPF (0-5) 11/21/18 07:30 Ur Squamous Epith Cells Negative /HPF (NEGATIVE) 11/21/18 07:30 Amorphous Sediment Trace /HPF (NEGATIVE) 11/21/18 07:30 Urine Bacteria Negative /HPF (NEGATIVE) 11/21/18 07:30 Urine Mucus Many /HPF (NEGATIVE) 11/21/18 07:30 Ur Culture Indicated? No/not indicated 11/21/18 07:30 Urine Opiates Screen Negative (NEG=<300) 11/21/18 07:30 Urine Methadone Screen Negative (NEG=<300) 11/21/18 07:30 Ur Barbiturates Screen Negative (NEG=<200) 11/21/18 07:30 Ur Phencyclidine Scrn Negative (NEG=<25) 11/21/18 07:30 Ur Amphetamines Screen Positive (NEG=<1000) 11/21/18 07:30 U Benzodiazepines Scrn Negative (NEG=<200) 11/21/18 07:30 Urine Cocaine Screen Negative (NEG=<300) 11/21/18 07:30 U Marijuana (THC) Screen Negative (NEG=<50) 11/21/18 07:30 - Plan (1) Cellulitis of left foot Status: Acute Plan: MRSA+ IV VANCOMYCIN, PO BACTRIM. SURGICAL CONSULT. MRI LEFT ANKLE (2) Hypokalemia Status: Acute Plan: IV HYDRATION, POTASSIUM REPLACEMENT. WOUND CARE, WOUND AND BLOOD CULTURES ON ADMISSION. IV ATBX THERAPY, LLE XRAY IN ER. CXR IN ER ON ADMISSION. (3) Puncture wound of left foot Status: Acute Qualifiers: Encounter type: initial encounter Qualified Code(s): S91.332A - Puncture wound without foreign body, left foot, initial encounter
[2018-11-24] MEDS: MOTRIN TAB 600 MG PO PRN (17:20)
[2018-11-24] MEDS ORDERED: TYLENOL 325 MG TAB PO PRN (17:46)
[2018-11-24 20:50] LABS: CREATININE 0.8 mg/dL (0.70-1.30); VANCOMYCIN,TROUGH 4.3 ug/mL (15-20)
[2018-11-24] MEDS: COLACE CAP 100 MG PO SCH (20:55)
[2018-11-25] MEDS: NORCO 5/325 MG TAB PO PRN ×4 (02:00→20:45)
[2018-11-25] MEDS: MOTRIN TAB 600 MG PO PRN ×2 (04:28→19:20)
[2018-11-25 06:24] LABS: BASOPHILS # (AUTO) 0.1 X10^3/uL (0.0-0.1); BASOPHILS % (AUTO) 1.3 % (0.2-1.0); EOSINOPHILS # (AUTO) 0.3 x10^3/uL (0.0-0.2); EOSINOPHILS % (AUTO) 4.2 % (0.9-2.9); HEMATOCRIT 35.3 % (42.0-54.0); HEMOGLOBIN 12.2 g/dL (13.5-18.0); LYMPHOCYTES # (AUTO) 2.2 X10^3/uL (1.3-2.9); LYMPHOCYTES % (AUTO) 36.3 % (21.0-51.0); MEAN CORPUSCULAR HEMOGLOBIN 30.8 pg (27.0-34.0); MEAN CORPUSCULAR HGB CONC 34.5 g/dL (33.0-35.0); MEAN CORPUSCULAR VOLUME 89.3 fL (80.0-100.0); MEAN PLATELET VOLUME 6.9 fL (7.4-11.0); MONOCYTES # (AUTO) 0.6 x10^3/uL (0.3-0.8); MONOCYTES % (AUTO) 9.7 % (0.0-13.0); NEUTROPHILS # (AUTO) 2.9 x10^3/uL (2.2-4.8); NEUTROPHILS % (AUTO) 48.5 % (42.0-75.0); PLATELET COUNT 245 X10^3/uL (150.0-450.0); RED BLOOD COUNT 3.95 X10^6/uL (4.7-6.0); RED CELL DISTRIBUTION WIDTH 13.7 % (11.6-16.5)
[2018-11-25 06:45] LABS: ALANINE AMINOTRANSFERASE 51 Units/L (12-78); ALBUMIN 2.9 g/dL (3.4-5.0); ALKALINE PHOSPHATASE 62 Units/L (46-116); ASPARTATE AMINO TRANSFERASE 36 Units/L (15-37); BLOOD UREA NITROGEN 11 mg/dL (7-18); CALCIUM 8.6 mg/dL (8.5-10.1); CARBON DIOXIDE 29.4 mmol/L (21-32); CHLORIDE 105 mmol/L (98-107); COR CA(FOR HYPOALB) 9.5 mg/dL (8.5-10.1); CREATININE 0.75 mg/dL (0.70-1.30); SODIUM 141 mmol/L (136-145); TOTAL PROTEIN 6.2 g/dL (6.4-8.2); eGFR NON BLACK RACES > 60 (>60)
[2018-11-25] MEDS: NS 1000 ML 1,000 ML IV SCH ×2 (06:48→20:46)
[2018-11-25] MEDS: VANCOMYCIN HCL 1 G in D5W 250 ML IV 250 ML IV SCH ×2 (08:51→20:47)
[2018-11-25] MEDS: LOVENOX INJ 40 MG SYR SC SCH ×2 (08:52→08:54)
[2018-11-25] MEDS: BACTRIM DS TAB PO SCH ×2 (08:52→20:45)
--- NOTE | 2018-11-25 09:40 | DR.PROGNOT ---
Hospital Progress Notes - Progress Note for Day of: Progress Note Date: 11/25/18 - Chief Complaint Chief Complaint: post op I&D Lt foot abscess . only mild draianage . pain is less .. positive culture for MRSA .. - Past Medical Family Social History Past Med/Fam/Surg Hx: No changes since H&P Allergies: Allergies No Known Drug Allergies Allergy (Verified 11/21/18 03:26) - Review Of Systems ROS: No change since H&P - Vital Signs Vital Signs: Temperature 98.4 F Pulse Rate [Right Brachial] 70 Pulse Rate [Left Brachial] 60 Pulse Rate 94 Respiratory Rate 18 Blood Pressure [Right Arm] 120/86 Blood Pressure [Left Arm] 124/68 Blood Pressure 136/65 O2 Sat by Pulse Oximetry 96 - Physical Exam Oriented: Normal Eyes: Normal Ear: Normal Nose: Normal Throat: Normal Respiratory: Normal Cardiovascular: Normal : Normal GI:Auscultation: Normal GI:Palpation: Normal GI: Tenderness: Normal Skin: Red, Tender, Hot, Wound (erythema involving the posterior Lt foot and dorsal aspect . no necrosis .) Musculoskeletal: Left, Ankle, Foot Psychiatric: Normal Speech Pattern: Clear, Appropriate - Laboratory and Diagnostics Result Diagrams: 11/25/18 05:49 11/25/18 05:49 Labs: 11/24/18 13:31 Foot - Left Gram Stain - Final 11/21/18 04:30 Blood Blood Culture - Preliminary 11/21/18 05:11 Blood Blood Culture - Preliminary 11/21/18 15:35 Foot - Left Gram Stain - Final 11/21/18 15:35 Foot - Left Wound Culture - Final Methicillin Resis Staph Aureus Laboratory WBC 6.0 X10^3/uL (3.6-10.0) 11/25/18 05:49 RBC 3.95 X10^6/uL (4.7-6.0) L 11/25/18 05:49 Hgb 12.2 g/dL (13.5-18.0) L 11/25/18 05:49 Hct 35.3 % (42.0-54.0) L 11/25/18 05:49 MCV 89.3 fL (80.0-100.0) 11/25/18 05:49 MCH 30.8 pg (27.0-34.0) 11/25/18 05:49 MCHC 34.5 g/dL (33.0-35.0) 11/25/18 05:49 RDW 13.7 % (11.6-16.5) 11/25/18 05:49 Plt Count 245 X10^3/uL (150.0-450.0) 11/25/18 05:49 MPV 6.9 fL (7.4-11.0) L 11/25/18 05:49 Neut % (Auto) 48.5 % (42.0-75.0) 11/25/18 05:49 Lymph % (Auto) 36.3 % (21.0-51.0) 11/25/18 05:49 [place] % (Auto) 9.7 % (0.0-13.0) 11/25/18 05:49 Eos % (Auto) 4.2 % (0.9-2.9) H 11/25/18 05:49 Baso % (Auto) 1.3 % (0.2-1.0) H 11/25/18 05:49 Neut # (Auto) 2.9 x10^3/uL (2.2-4.8) 11/25/18 05:49 Lymph # (Auto) 2.2 X10^3/uL (1.3-2.9) 11/25/18 05:49 [place] # (Auto) 0.6 x10^3/uL (0.3-0.8) 11/25/18 05:49 Eos # (Auto) 0.3 x10^3/uL (0.0-0.2) H 11/25/18 05:49 Baso # (Auto) 0.1 X10^3/uL (0.0-0.1) 11/25/18 05:49 Absolute Nucleated RBC 0.0 /100WBC 11/25/18 05:49 Sodium 141 mmol/L (136-145) 11/25/18 05:49 Corrected Sodium TNP 11/25/18 05:49 Potassium 4.2 mmol/L (3.5-5.1) 11/25/18 05:49 Chloride 105 mmol/L (98-107) 11/25/18 05:49 Carbon Dioxide 29.4 mmol/L (21-32) 11/25/18 05:49 BUN 11 mg/dL (7-18) 11/25/18 05:49 Creatinine 0.75 mg/dL (0.70-1.30) 11/25/18 05:49 Est GFR (MDRD) Af Amer > 60 (>60) 11/25/18 05:49 Est GFR (MDRD) Non-Af > 60 (>60) 11/25/18 05:49 Glucose 83 mg/dL (65-99) 11/25/18 05:49 Lactic Acid 0.7 mmol/L (0.4-2.0) 11/21/18 04:30 Calcium 8.6 mg/dL (8.5-10.1) 11/25/18 05:49 Corrected Calcium 9.5 mg/dL (8.5-10.1) 11/25/18 05:49 Magnesium 2.1 mg/dL (1.7-2.9) 11/21/18 07:40 Total Bilirubin 0.10 mg/dL (0.2-1.0) L 11/25/18 05:49 AST 36 Units/L (15-37) 11/25/18 05:49 ALT 51 Units/L (12-78) 11/25/18 05:49 Alkaline Phosphatase 62 Units/L (46-116) 11/25/18 05:49 Total Protein 6.2 g/dL (6.4-8.2) L 11/25/18 05:49 Albumin 2.9 g/dL (3.4-5.0) L 11/25/18 05:49 Globulin 3.3 g/dL (2.5-4.5) 11/25/18 05:49 Albumin/Globulin Ratio 0.9 Ratio (1.1-2.1) L 11/25/18 05:49 Specimen Type Clean catch urine 11/21/18 07:30 Urine Color Dark yellow (YELLOW) 11/21/18 07:30 Urine Appearance Clear (CLEAR) 11/21/18 07:30 Urine pH 6.0 (5.0 - 8.0) 11/21/18 07:30 Ur Specific [place] 1.020 (1.000-1.030) 11/21/18 07:30 Urine Protein 2+ (NEGATIVE) 11/21/18 07:30 Urine Glucose (UA) Negative (NEGATIVE) 11/21/18 07:30 Urine Ketones 1+ (NEGATIVE) 11/21/18 07:30 Urine Occult Blood 1+ (NEGATIVE) 11/21/18 07:30 Urine Nitrite Negative (NEGATIVE) 11/21/18 07:30 Urine Bilirubin Negative (NEGATIVE) 11/21/18 07:30 Urine Urobilinogen 3+ (NORMAL) 11/21/18 07:30 Ur Leukocyte Esterase 1+ (NEGATIVE) 11/21/18 07:30 Urine RBC None seen /HPF (0-3) 11/21/18 07:30 Urine WBC 3-5 /HPF (0-5) 11/21/18 07:30 Ur Squamous Epith Cells Negative /HPF (NEGATIVE) 11/21/18 07:30 Amorphous Sediment Trace /HPF (NEGATIVE) 11/21/18 07:30 Urine Bacteria Negative /HPF (NEGATIVE) 11/21/18 07:30 Urine Mucus Many /HPF (NEGATIVE) 11/21/18 07:30 Ur Culture Indicated? No/not indicated 11/21/18 07:30 Vancomycin Trough 4.3 ug/mL (15-20) L 11/24/18 20:18 Urine Opiates Screen Negative (NEG=<300) 11/21/18 07:30 Urine Methadone Screen Negative (NEG=<300) 11/21/18 07:30 Ur Barbiturates Screen Negative (NEG=<200) 11/21/18 07:30 Ur Phencyclidine Scrn Negative (NEG=<25) 11/21/18 07:30 Ur Amphetamines Screen Positive (NEG=<1000) 11/21/18 07:30 U Benzodiazepines Scrn Negative (NEG=<200) 11/21/18 07:30 Urine Cocaine Screen Negative (NEG=<300) 11/21/18 07:30 U Marijuana (THC) Screen Negative (NEG=<50) 11/21/18 07:30 - Assessment and Plan 1: Lt foot abscess with cellulitis . s/p I&D . same local care and ATB . will follow in one week in the office . - Problem Patient Problems: Patient Problems Cellulitis of left foot (Acute) L03.116 Hypokalemia (Acute) E87.6 Puncture wound of left foot (Acute) S91.332A
[2018-11-25] MEDS ORDERED: VERSED ONE (15:56)
[2018-11-25] MEDS ORDERED: DIPRIVAN VIAL ONE (15:56)
[2018-11-25] MEDS ORDERED: XYLOCAINE 2 % (PLAIN) ONE (15:56)
[2018-11-25] MEDS: MORPHINE SULFATE INJ 2 MG INJ IVP PRN (16:43)
[2018-11-25] MEDS: COLACE CAP 100 MG PO SCH (20:45)
[2018-11-26] MEDS: NORCO 5/325 MG TAB PO PRN ×2 (05:09→11:12)
[2018-11-26 06:04] LABS: BASOPHILS # (AUTO) 0.1 X10^3/uL (0.0-0.1); BASOPHILS % (AUTO) 1.2 % (0.2-1.0); EOSINOPHILS # (AUTO) 0.3 x10^3/uL (0.0-0.2); EOSINOPHILS % (AUTO) 3.6 % (0.9-2.9); HEMATOCRIT 36.2 % (42.0-54.0); HEMOGLOBIN 12.6 g/dL (13.5-18.0); LYMPHOCYTES # (AUTO) 2.4 X10^3/uL (1.3-2.9); LYMPHOCYTES % (AUTO) 34.1 % (21.0-51.0); MEAN CORPUSCULAR HEMOGLOBIN 30.9 pg (27.0-34.0); MEAN CORPUSCULAR HGB CONC 34.8 g/dL (33.0-35.0); MEAN CORPUSCULAR VOLUME 88.7 fL (80.0-100.0); MEAN PLATELET VOLUME 6.7 fL (7.4-11.0); MONOCYTES # (AUTO) 0.6 x10^3/uL (0.3-0.8); MONOCYTES % (AUTO) 8.2 % (0.0-13.0); NEUTROPHILS # (AUTO) 3.8 x10^3/uL (2.2-4.8); NEUTROPHILS % (AUTO) 52.9 % (42.0-75.0); PLATELET COUNT 273 X10^3/uL (150.0-450.0); RED BLOOD COUNT 4.08 X10^6/uL (4.7-6.0); RED CELL DISTRIBUTION WIDTH 13.8 % (11.6-16.5); WHITE BLOOD COUNT 7.1 X10^3/uL (3.6-10.0)
[2018-11-26 06:16] LABS: ALANINE AMINOTRANSFERASE 51 Units/L (12-78); ALBUMIN 3.1 g/dL (3.4-5.0); ALKALINE PHOSPHATASE 64 Units/L (46-116); ASPARTATE AMINO TRANSFERASE 28 Units/L (15-37); BLOOD UREA NITROGEN 12 mg/dL (7-18); CALCIUM 8.6 mg/dL (8.5-10.1); CHLORIDE 104 mmol/L (98-107); COR CA(FOR HYPOALB) 9.3 mg/dL (8.5-10.1); CREATININE 0.76 mg/dL (0.70-1.30); SODIUM 141 mmol/L (136-145); TOTAL PROTEIN 6.6 g/dL (6.4-8.2); eGFR NON BLACK RACES > 60 (>60)
[2018-11-26] MEDS: BACTRIM DS TAB PO SCH (08:46)
[2018-11-26] MEDS: VANCOMYCIN HCL 1 G in D5W 250 ML IV 250 ML IV SCH (08:46)
[2018-11-26] MEDS: MOTRIN TAB 600 MG PO PRN (08:48)
[2018-11-26 09:12] VITALS: BP 133/77
[2018-11-26] MEDS: LOVENOX INJ 40 MG SYR SC SCH (09:12)
[2018-11-26] MEDS: MORPHINE SULFATE INJ 2 MG INJ IVP PRN (10:30)
== END 2018-11-26 11:10 | disposition home or self-care (01) | DRG 603 ==
LOC: ER 03:19 → MED/SURG 06:53
PROVIDERS: ADMIT Internal Medicine; ATTEND Internal Medicine
DX: Z23 Encounter for immunization; E87.6 Hypokalemia; Y92.9 Unspecified place or not applicable; S91.332A Puncture wound without foreign body, left foot, initial encounter; X58.XXXA Exposure to other specified factors, initial encounter; L03.116 Cellulitis of left lower limb; B95.62 Methicillin resistant Staphylococcus aureus infection as the cause of diseases classified elsewhere
CPT/HCPCS: 36415; 71010; 71045; 73630; 73723; 80053; 80202; 80307; 81001; 82565; 83605; 83735; 84132; 85025; 87040; 87070; 87075; 87077; 87186; 87205; 90471; 90715; 96365; 96367; 96374; 96375; 99284; A4216; A4222; G0434; J1650; J1885; J1956; J2250; J2270; J2543; J2704; J3010; J3370; J3490; J7030; J7050; J7060; J8499